=== PATIENT | male | born 1995 | race African-American/Black ===

== ENCOUNTER 2017-11-28 13:20 | Emergency (ER) | payer OTHER ==
[2017-11-28 13:42] VITALS: BP 117/65
[2017-11-28] MEDS ORDERED: IBUPROFEN 600600 M1 PO (14:17)
[2017-11-28] MEDS ORDERED: CIPRO500 MG PO (14:22)
== END 2017-11-28 14:42 | disposition home or self-care (01) ==
LOC: ER 13:20
DX: S91.331A Puncture wound without foreign body, right foot, initial encounter (principal); W45.0XXA Nail entering through skin, initial encounter; Y92.89 Other specified places as the place of occurrence of the external cause; Y93.89 Activity, other specified; Y99.8 Other external cause status

== ENCOUNTER 2019-12-18 12:51 | Emergency (ER) | payer OTHER ==
[~2019-12-18] VITALS: Ht 177.8 cm; Wt 61.7 kg
[~2019-12-18 12:51] MED LIST: ALEVE220 MG PO; CIPRO500 MG PO; FLEXERIL PO; IBUPROFEN 600600 M1 PO
[2019-12-18 13:48] LABS: URINE BILIRUBIN NEGATIVE (Negative); URINE BLOOD TRACE (Negative); URINE CLARITY CLEAR; URINE COLOR YELLOW; URINE GLUCOSE-RANDOM* NEGATIVE (Negative); URINE KETONES NEGATIVE (Negative); URINE LEUKOCYTES-REFLEX TRACE (Negative); URINE NITRITE-REFLEX NEGATIVE (Negative); URINE PROTEIN (DIPSTICK) NEGATIVE (Negative); URINE SPECIFIC GRAVITY >= 1.030 (1.005-1.035); URINE UROBILINOGEN 0.2 E.U./dl (0.2-1.0)
[2019-12-18 14:45] VITALS: BP 147/84
== END 2019-12-18 15:06 | disposition home or self-care (01) ==
LOC: ER 12:51
PROVIDERS: Emergency Medicine
DX: Z20.2 Contact with and (suspected) exposure to infections with a predominantly sexual mode of transmission (principal)

== ENCOUNTER 2020-01-21 12:14 | Emergency (ER) | payer OTHER ==
[~2020-01-21] VITALS: Ht 172.7 cm; Wt 72.6 kg
--- NOTE | ~2020-01-21 | EMS ---
[address] [address] EMS Patient Care Report Name: CIERA VALENTINE Room #: REG SRAVAN Escobar#: [id number] Admission: 01/21/20 Attend Phys: Discharge: Date of : [birth year] Report #: [id number] THIS REPORT FOR: //name// Report Transmitted: 01/21/2020 12:21 EMS Care Summary [place], [place]/[facility] Incident [id number] @ 01/21/2020 11:36 Incident Location [address] [place] [address] Patient CIERA VALENTINE Male, 24 Years 1995 Patient Address [address] [place] [address] Patient History None Reported, Patient Allergies No known allergies, Patient Medications None Reported, Chief Complaint VOMITING Disposition Transported No Lights/[place] Dis[place] Reason Convulsions/Seizure Transported To [facility] Narrative DISPATCHED EMERGENCY ON A SEIZURE. PUMPER 41 ON SCENE UPON ARRIVAL. 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 ADMITS THAT PT USED [employer] THIS MORNING. 24 Y/O MALE BEING CARRIED OUT OF APARTMENT APPEARING IN MILD DISTRESS. GCS 14. PT IS DIAPHORETIC AND VOMITING. MOVED WITHOUT INCIDENT TO AMBULANCE VIA STRETCHER. NO KNOWN SEIZURE ACTIVITY. PLACED ON MONITOR AND V/S'S OBTAINED. IV ESTABLISHED. ZOFRAN ADMINISTERED. VOMITING SUBSIDES. PT CONTINUES TO MOVE CAUSING ECG LEADS AND PULSE OX TO DETACH FROM PT. ATTEMPTED MULTIPLE TIMES TO REATTACH LEADS AND PULSE OX. PT IS UNCOOPERATIVE BUT NOT COMBATIVE. TRANSPORTED TO [facility]. REASSESSED ENROUTE. REMAINS GCS 14 AND UNCOOPERATIVE. V/S'S OBTAINED. REPORT CALLED TO HOSPITAL. UPON ARRIVAL AT HOSPITAL, PT VOMITS AGAIN. MOVED WITHOUT INCIDENT TO ER HOSPITAL BED 6. PT CARE TRANSFERRED TO ED RN. Initial Vitals @11:53P: 103,R: 20,BP: 163/103,Pain: 0/10,GCS: 14,Glucose: 133,Revised Trauma: 12, @11:58P: 74,R: 18,BP: 162/95,GCS: 15,Revised Trauma: 12, Assessments @11:45MENTAL:Confused,Person Oriented,SKIN:Diaphoresis,HEENT:Eyes: Left Pupil: 4-mm,Eyes: Right Pupil: 4-mm,Head/Face: No Abnormalities,Neck/Airway: No Abnormalities,LUNG SOUNDS:General: Vomiting,ABDOMEN:General: Vomiting,PELVIS//GI:EXTREMITIES:Capillary Refill: Left Upper: < 2 Sec,Capillary Refill: Left Lower: < 2 Sec,Capillary Refill: Right Lower: < 2 Sec,Capillary Refill: Right Upper: < 2 Sec,Left Arm: No Abnormalities,Right Arm: No Abnormalities,Left Leg: No Abnormalities,Right Leg: No Abnormalities,PULSE:Radial: 2+ Normal,NEURO: Impression Altered Mental Status Procedures @11:48StairchairResponse: Unchanged@11:49StretcherResponse: Unchanged@11:44ALS AssessmentResponse: UnchangedSucceeded@11:53Saline Lock 10cc (18 ga) Site: Antecubital-LeftResponse: UnchangedSucceeded@11:53Zofran - 4 Milligrams (mg) - Intravenous (IV)Response: Unchanged@11:583-Lead ECGResponse: UnchangedSucceeded Timeline 11:34,Call Received 11:34,Dispatch Notified 11:36,Dispatched 11:37,En Route 11:42,On Scene 11:44,At Patient 11:44,ALS Assessment,Response: UnchangedSucceeded, 11:48,Stairchair,Response: Unchanged 11:49,Stretcher,Response: [place] [address] EMS Patient Care Report Name: CIERA VALENTINE Room #: REG SRAVAN Escobar#: [id number] Admission: 01/21/20 Attend Phys: Discharge: Date of : [birth year] Report #: [id number] 11:53,BP: 163/103 M,PULSE: 103,RR: 20 R,SPO2: Ox,ETCO2: ,B,PAIN: 0,GCS: 14, 11:53,Saline Lock 10cc 18 ga Site: Antecubital-Left,Response: UnchangedSucceeded, 11:53,Zofran - 4 Milligrams (mg) - Intravenous (IV),Response: Unchanged 11:58,3-Lead ECG,Response: UnchangedSucceeded, 11:58,Depart Scene 11:58,BP: 162/95 M,PULSE: 74,RR: 18 R,SPO2: Ox,ETCO2: ,BG: ,PAIN: ,GCS: 15, 12:12,At Destination 12:28,Call Closed Disclaimer [email or web address] Copyright 2020 [employer] This EMS Care Summary contains data elements from the applicable legal record (which may be displayed differently). It is designed to provide pertinent information for the following purposes: continuity of care, clinical quality, and state data reporting. The complete legal record is available to ED staff and administrators of the receiving hospital in [employer]'s Patient Tracker. All data is provided "as is."
[2020-01-21 12:32] LABS: BASOPHILS 0.9 % (0.0-2.0); EOSINOPHILS 0.8 % (0.0-3.0); HEMATOCRIT 47.5 % (42.0-52.0); LYMPHOCYTES 28.1 % (24.0-44.0); MCH 32.2 pg (26.0-34.0); MCHC 33.7 g/dL (28.0-37.0); MCV 95.7 fL (80.0-100.0); MONOCYTES 5.5 % (1.0-8.0); PLATELET COUNT 224 thou/uL (150-400); POLYS 64.7 % (36.0-66.0); RBC 4.97 mil/uL (4.50-6.00); RDW 12.1 % (10.5-14.5); WBC 9.3 thou/uL (4.0-11.0)
[2020-01-21 12:37] LABS: CALCIUM 9.1 mg/dL (8.5-10.1); CREATININE 1.4 mg/dL (0.7-1.3); POTASSIUM 3.3 mmol/L (3.5-5.1)
[2020-01-21 12:38] LABS: MAGNESIUM 1.9 mg/dL (1.8-2.4)
[2020-01-21 13:16] LABS: SALICYLATE < 2.8 mg/dL (2.8-20.0)
[2020-01-21 14:50] LABS: AMP/METHAMP Negative (Negative); BARBITURATES Negative (Negative); BENZODIAZEPINES Negative (Negative); COCAINE Negative (Negative); METHADONE Negative (Negative); OPIATES Negative (Negative); PCP Negative (Negative)
[2020-01-21 16:10] LABS: CALCIUM 8.6 mg/dL (8.5-10.1); CREATININE 1.4 mg/dL (0.7-1.3); POTASSIUM 3.6 mmol/L (3.5-5.1)
[2020-01-21 20:08] LABS: URINE BILIRUBIN NEGATIVE (Negative); URINE BLOOD 2+ (Negative); URINE CLARITY CLOUDY; URINE COLOR YELLOW; URINE GLUCOSE-RANDOM* 3+ (Negative); URINE KETONES TRACE (Negative); URINE LEUKOCYTES-REFLEX NEGATIVE (Negative); URINE NITRITE-REFLEX NEGATIVE (Negative); URINE PROTEIN (DIPSTICK) 1+ (Negative); URINE SPECIFIC GRAVITY >= 1.030 (1.005-1.035); URINE UROBILINOGEN 0.2 E.U./dl (0.2-1.0)
[2020-01-21 20:17] LABS: AMORPHOUS URATES Many /LPF (None Seen); CASTS None Seen /LPF (None Seen); SQUAMOUS 0-3 Few /LPF (0-3)
[2020-01-21 20:18] LABS: BACTERIA-REFLEX 1-9 Few /HPF (None Seen); URINE RBC 0-2 Rare /HPF (0-2); URINE WBC-REFLEX None Seen /HPF (0-5)
[2020-01-22 06:02] VITALS: BP 118/66
== END 2020-01-22 06:16 | disposition home or self-care (01) ==
LOC: ER 12:14
PROVIDERS: Emergency Medicine
DX: F19.921 Other psychoactive substance use, unspecified with intoxication with delirium (principal); R41.82 Altered mental status, unspecified; R11.10 Vomiting, unspecified

== ENCOUNTER 2020-04-16 15:52 | Emergency (ER) | payer OTHER ==
[~2020-04-16] VITALS: Ht 177.8 cm; Wt 63.5 kg
[2020-04-16 16:00] VITALS: BP 124/85
[2020-04-16] MEDS ORDERED: AMOXICILLIN500 M1 PO (16:09)
== END 2020-04-16 16:38 | disposition home or self-care (01) ==
LOC: ER 15:52
DX: J02.9 Acute pharyngitis, unspecified (principal); Z20.828 Contact with and (suspected) exposure to other viral communicable diseases

== ENCOUNTER → 2020-05-21 | Emergency (ER) | payer OTHER ==
[~2020-05-21] VITALS: Ht 177.8 cm; Wt 71.7 kg
[~2020-05-21] MED LIST changes: +AMOXICILLIN500 M1 PO
[2020-05-21 18:14] VITALS: BP 123/84
[2020-05-21 19:06] LABS: URINE BILIRUBIN NEGATIVE (Negative); URINE BLOOD NEGATIVE (Negative); URINE CLARITY CLEAR; URINE COLOR YELLOW; URINE GLUCOSE-RANDOM* NEGATIVE (Negative); URINE KETONES NEGATIVE (Negative); URINE LEUKOCYTES-REFLEX NEGATIVE (Negative); URINE NITRITE-REFLEX NEGATIVE (Negative); URINE PROTEIN (DIPSTICK) NEGATIVE (Negative); URINE SPECIFIC GRAVITY >= 1.030 (1.005-1.035); URINE UROBILINOGEN 0.2 E.U./dl (0.2-1.0)
== END ==
LOC: ER 18:06
PROVIDERS: Emergency Medicine
DX: Z20.2 Contact with and (suspected) exposure to infections with a predominantly sexual mode of transmission (principal); R11.10 Vomiting, unspecified

== ENCOUNTER 2020-12-20 19:31 | Emergency (ER) | payer BC, OTHER ==
[~2020-12-20] VITALS: Ht 177.8 cm; Wt 63.5 kg
[2020-12-20 19:44] VITALS: BP 109/70
== END 2020-12-20 20:29 | disposition home or self-care (01) ==
LOC: ER 19:31
DX: R05 Cough (principal); R51.9 Headache, unspecified; R50.9 Fever, unspecified; Z20.822 Contact with and (suspected) exposure to COVID-19